=== PATIENT | female | born 2000 | race Hispanic/Latino ===

== ENCOUNTER 2024-10-19 11:03 | Emergency (ER) | payer BC ==
[~2024-10-19] VITALS: Ht 165.1 cm; Wt 107.0 kg
--- NOTE | 2024-10-19 11:42 | EKG ---
[facility] Test Date: 2024-10-19 Test Time: 11:39:08 Pat Name: TIFFANY STILES Department: ED Room: Gender: F [employer]: [id number] : 2000 Requested By: DANUTA CONTEH Order Number: [id number] Reading MD: Geovani Montgomery Measurements Intervals Bruce Rate: 74 P: 54 NC: 158 QRS: 10 QRSD: 79 T: 7 QT: 376 QTc: 418 Interpretive Statements Sinus rhythm No previous ECG available for comparison Electronically Signed On 10-19-2024 22:32:45 CDT by Geovani Montgomery Please click the below link to view image of tracing.
[2024-10-19 11:59] LABS: BASOPHILS # (AUTO) 0.04 K/uL (0.00-0.20); BASOPHILS % (AUTO) 0.3 % (0.0-5.0); EOSINOPHILS # (AUTO) 0.18 K/uL (0.00-0.70); EOSINOPHILS % (AUTO) 1.5 % (0.0-8.0); HEMATOCRIT 37.1 % (36-48); IMMATURE GRANULOCYTE ABSOLUTE 0.05 K/uL (0-1); LYMPHOCYTES # (AUTO) 2.7 K/uL (1.0-4.8); LYMPHOCYTES % (AUTO) 22.6 % (21.0-51.0); MEAN CORPUSCULAR HGB CONC 32.9 g/dL (32.0-36.0); MEAN CORPUSCULAR VOLUME 88.1 fL (79-99); MONOCYTES # (AUTO) 0.9 K/uL (0.1-1.0); MONOCYTES % (AUTO) 7.3 % (3.0-13.0); NEUTROPHILS # (AUTO) 7.9 K/uL (1.8-7.7); NEUTROPHILS % (AUTO) 67.9 % (40.0-77.0); PLATELET COUNT (AUTO) 180 K/uL (130-400); RED BLOOD CELL COUNT(AUTO) 4.21 MIL/uL (4.00-5.50); RED CELL DISTRIBUTION WIDTH 13.8 % (11.0-15.5); WHITE BLOOD COUNT (AUTO) 11.7 K/uL (4.8-10.8)
[2024-10-19 12:07] LABS: CREATININE 0.4 mg/dL (0.5-1.0); POTASSIUM 4.2 mmol/L (3.5-5.1)
[2024-10-19] MEDS: 0.9%NACL 1000ML 1,000 ML IV STA (12:44)
[2024-10-19] MEDS: acetaMINOPHEN 325 MG TAB PO ONE (12:44)
--- NOTE | 2024-10-19 12:58 | ERN ---
ED Note History of Present Illness Stated Complaint: SHARP CHEST PAIN Chief Complaint: Chest Pain Time Seen by MD: 11:04 Time Seen by Midlevel: 11:10 Dictation: 24-year-old female with a history of cholesterol coming in with complaints of chest pain in the headache she says is this started after she donated plasma two days ago. Denies any fevers, nausea, vomiting, abdominal pain shortness a breath. Allergies: Coded Allergies: No Known Allergies (Unverified Allergy, Unknown, 10/19/24) Past Medical History Past Medical History: No Pertinent History Surgical History: None LMP: Sep 24, 2024 Review of System Dictation Constitutional: Negative for fever,chills, and weight loss Eyes: Negative for injury, pain,redness, and discharge ENT: Negative for injury,pain or swelling Cardiovascular: Complaining of chest pain, palpitations, and edema Respiratory: Negative for shortness of breath, cough, and wheezing, Abdomen/GI: Negative for abdominal pain, nausea, vomiting, diarrhea, and constipation Back: Negative for injury and pain : Negative for injury, bleeding and discharge MS/Extremity: Negative for injury and deformity Skin: Negative for rash, and discoloration Neuro: Positive for headache, no weakness, no numbness, no tingling, and no seizure Psych: Negative for suicide ideation, homicidal ideation, and hallucinations Review of Systems: was completed Initial Vital Sign VS Vital Signs Date Time Temp Pulse Resp B/P (MAP) Pulse Ox O2 Delivery O2 Flow Rate FiO2 10/19/24 11:30 98.2 74 20 114/74 98 Room Air 10/19/24 12:29 0 21 Physical Exam Dictation General: awake, alert, NAD Head/Face: Normocephalic, atraumatic Eyes: PERRL, EOMI, vision at baseline ENT: oral cavity clear, TMs clear, no signs of infection Neck: Trachea midline, supple, no nuchal rigidity Cardiovascular: RRR, normal S1/S2, No MRGs, no JVD Respiratory: CTAB, no respiratory distress, No rales or wheezes Abdomen: Soft, non-tender, non-distended, normal bowel sounds, no guarding or rebound. Skin: Warm, dry, normal turgor, no rash MS/Extremity: Pulses equal, no cyanosis, neurovascular intact, FROM Neuro: COAx4, GCS 15, strength 5/5, CN 2-12 intact, normal cerebellar exam, normal gait, Psych: Normal behavior, mood, and affect normal Results (Laboratory/Radiology) Laboratory/Radiology Laboratory Tests Test 10/19/24 11:49 White Blood Count 11.7 K/uL (4.8-10.8) H Red Blood Count 4.21 MIL/uL (4.00-5.50) Hemoglobin 12.2 g/dL (12.0-16.0) Hematocrit 37.1 % (36-48) Mean Corpuscular Volume 88.1 fL (79-99) Mean Corpuscular Hemoglobin 29.0 pg (27.0-33.0) Mean Corpuscular Hemoglobin Concent 32.9 g/dL (32.0-36.0) Red Cell Distribution Width 13.8 % (11.0-15.5) Platelet Count 180 K/uL (130-400) Mean Platelet Volume 12.4 fL (7.5-10.5) H Immature Granulocyte % (Auto) 0.4 % (0-1) Neutrophils (%) (Auto) 67.9 % (40.0-77.0) Lymphocytes (%) (Auto) 22.6 % (21.0-51.0) Monocytes (%) (Auto) 7.3 % (3.0-13.0) Eosinophils (%) (Auto) 1.5 % (0.0-8.0) Basophils (%) (Auto) 0.3 % (0.0-5.0) Neutrophils # (Auto) 7.9 K/uL (1.8-7.7) H Lymphocytes # (Auto) 2.7 K/uL (1.0-4.8) Monocytes # (Auto) 0.9 K/uL (0.1-1.0) Eosinophils # (Auto) 0.18 K/uL (0.00-0.70) Basophils # (Auto) 0.04 K/uL (0.00-0.20) Absolute Immature Granulocyte (auto 0.05 K/uL (0-1) Nucleated Red Blood Cells 0.0 % (0.0-0.19) Sodium Level 140 mmol/L (136-145) Potassium Level 4.2 mmol/L (3.5-5.1) Chloride Level 106 mmol/L (101-111) Carbon Dioxide Level 29 mmol/L (21-32) Blood Urea Nitrogen 14 mg/dL (7-18) Creatinine 0.4 mg/dL (0.5-1.0) L Glomerular Filtration Rate Calc 143 mL/min (>90) Random Glucose 89 mg/dL (70-105) Total Calcium 8.3 mg/dL (8.5-10.1) L Troponin I High Sensitivity < 4 ng/L (4-50) L Labs Reviewed?: Yes EKG Comment: EKGs did not 1139, sinus rhythm at a rate of 74. No STEMI interpreted by ER MD ED Course ED Course Orders Procedure Category Date Status Time Cbc With Differential LAB 10/19/24 Complete 11:07 Basic Metabolic Panel LAB 10/19/24 Complete 11:07 Troponin I High LAB 10/19/24 Complete Sensitivity 11:07 12 Lead Ekg Tracing- EKG 10/19/24 Complete Technical 11:07 0.9%Nacl 1000ml (Ns PHA 10/19/24 Complete 1000ml) 11:07 Acetaminophen 325 Tab PHA 10/19/24 Complete (Tylenol 325mg Tab 12:00 Current Medications Medications (Trade) Dose Ordered Sig/Estuardo Route PRN Reason Start Time Stop Time Status Last Admin Dose Admin Acetaminophen (TYLenol 325MG TAB) 650 mg ONCE ONCE PO 10/19/24 12:00 10/19/24 12:01 DC 10/19/24 12:44 Sodium Chloride 1,000 ml @ 1,000 mls/hr Q1H STAT IV 10/19/24 11:07 10/19/24 12:06 DC 10/19/24 12:44 Vital Signs Date Time Temp Pulse Resp B/P (MAP) Pulse Ox O2 Delivery O2 Flow Rate FiO2 10/19/24 12:29 98.2 74 20 114/74 98 Room Air* 0 21 10/19/24 11:30 98.2 74 20 114/74 98 Room Air HEART Score Response (Comments) Value History: Low suspicion (0) 0 EKG: Normal 0 Age: < 45yrs (0) 0 Risk Factors: 1-2 risk factors (+1) 1 Initial Troponin: Normal limit (0) 0 Total 1 Medical Decision Making MDM MDM: 24-year-old female with a history of cholesterol coming in with complaints of chest pain in the headache she says is this started after she donated plasma two days ago. Denies any fevers, nausea, vomiting, abdominal pain shortness a breath. No meningeal signs. Patient reveal that she has been under a lot of stress thinks this could be related to her symptoms. Blood work unremarkable. Troponin is negative. EKGs shows sinus rhythm. heart score 1, low risk. Patient received fluids in the emergency room along with Tylenol for her headache. Patient states he feels better after medications. Discussed with the patient this could be side effects from the donating plasma needs to stay hydrated and follow up with PCP in 1-2 days. Patient verbalized understanding, answered all questions. Differential diagnosis: Dehydration, electrolyte abnormality, costochondritis Rationale: Tests considered and ordered secondary to shared decision making include: Previous outside records reviewed: Old ER visits. Risk of complication and/or morbidity or mortality of patient management: None Medications-Per medication reconciliation Need for hospitalization: Patient does not meet criteria for hospitalization. Need for emergency major/minor surgery: No There are no social concerns with this patient. Prescription drug management Prescriptions will include symptomatic care Patient's prior external medical records from other ER visits were reviewed by me as indicated. Prior testing and results from previous visits were reviewed. Prior tests were taken into account with medical decision making and resource utilization, independent historian/historians were used to obtain complete medical history. I independently interpreted the test that were performed, results were reviewed by me and considered findings on radiology if ordered. Medical management and examination interpretation discussions were had by me with other qualified healthcare professionals as indicated for the patient's care. DX & DISP Disposition: Discharge Departure Impression: Primary Impression: Headache Additional Impression: Dehydration Condition: Stable Additional Instructions: Follow up with your primary doctor in 1-2 days. Return to the hospital if you have any worsening symptoms. Referrals: BEN CUMMINGS DO (PCP) Time of Disposition: 12:53 I have reviewed the case, and I agree with, Diagnosis and Plan DANUTA CONTEH NP October 19, 2024 12:57
--- NOTE | 2024-10-19 13:00 | NUR ---
D/C AFTER FLUIDS GIVEN
[2024-10-19] MEDS: hydrOXYzine 25 MG TABLET PO STA (13:02)
[2024-10-19 13:04] VITALS: BP 121/72; PULSE 72; RESP 20; TEMP 98.2; O2SAT 98
== END 2024-10-19 13:08 | disposition home or self-care (01) ==
LOC: EDH 11:03
DX: R51.9 Headache, unspecified (principal); E86.0 Dehydration
CPT/HCPCS: 99284; 84484; 80048; 85025; 36415; 93005; J7030